=== PATIENT | male | born 1995 | race Caucasian/White ===

== ENCOUNTER 2019-03-06 13:22 | Emergency (ER) | payer MEDICAID ==
[~2019-03-06] VITALS: Ht 188 cm; Wt 106.6 kg
[~2019-03-06 13:22] MED LIST: Amoxicilli250 MG/5 M PO; CEFU50SU PO; CODACEE120 PO; HYDGUAL120 PO; LORTAB 10 MG-3473 ML PO; Phenergan6.25 MG/5 PO; [UNRECOGNIZED DRUG - CODE] PO
[2019-03-06] MEDS ORDERED: Prilosec Otc20 MG PO (14:24)
== END 2019-03-06 14:47 | disposition home or self-care (01) ==
LOC: ER 13:22
DX: K21.9 Gastro-esophageal reflux disease without esophagitis (principal); F17.200 Nicotine dependence, unspecified, uncomplicated
CPT/HCPCS: 99283